=== PATIENT | female | born 1950 | race Caucasian/White ===

== ENCOUNTER 2021-05-09 05:25 | Day surgery (SDC) | payer OTHER, MEDICARE, SELFPAY ==
[~2021-05-09] VITALS: Ht 157.5 cm; Wt 61.2 kg
[2021-05-09 06:35] LABS: CALCIUM 7.6 mg/dL (8.4-11.0); CREATININE 0.69 mg/dL (0.55-1.30); POTASSIUM 3.6 mmol/L (3.5-5.1)
[2021-05-09 06:40] LABS: ALBUMIN 3.5 g/dL (3.4-4.8); TOTAL BILIRUBIN 0.1 mg/dL (0.0-1.0)
[2021-05-09] MEDS ORDERED: CEFAZOLIN 1 GM IVPB PREMIX 50 ML IV ONE (07:00)
[2021-05-09] MEDS ORDERED: WATER FOR IRRIGATION,STERILE 1,000 ML IRRIG.SOLN IR ONE (07:21)
[2021-05-09] MEDS ORDERED: SUGAMMADEX SODIUM 200 MG/2 ML VIAL IV ONE (07:21)
[2021-05-09] MEDS ORDERED: DEXAMETHASONE SOD PHOSPHATE 4 MG/ML VIAL ONE (07:21)
[2021-05-09] MEDS ORDERED: NALOXONE HCL 2 MG/2 ML SYR (NARCAN) ONE (07:21)
[2021-05-09] MEDS ORDERED: KETOROLAC TROMETHAMINE 30 MG VIAL ONE (07:21)
[2021-05-09] MEDS ORDERED: NS 1000 ML IV.SOLN IV ONE (07:21)
[2021-05-09] MEDS ORDERED: ROCURONIUM BROMIDE 10 MG/ML (ZEMURON) ONE (07:21)
[2021-05-09] MEDS ORDERED: LIDOCAINE PF 2%, 200 MG/10 ML AMPUL.LUER (EPIDURAL) INJ ONE (07:21)
[2021-05-09] MEDS ORDERED: ONDANSETRON HCL 4 MG/2 ML VIAL ONE (07:21)
[2021-05-09] MEDS ORDERED: ISOFLURANE 15 MIN GAS INH ONE (07:21)
[2021-05-09] MEDS ORDERED: MIDAZOLAM HCL 5 MG/ML VIAL (VERSED) IV ONE (07:21)
[2021-05-09] MEDS ORDERED: fentaNYL CITRATE 250 MCG/5 ML AMP ONE (07:21)
[2021-05-09] MEDS ORDERED: PROPOFOL 200MG/ 20ML VIAL (DIPRIVAN) IV ONE (07:21)
[2021-05-09] MEDS ORDERED: NS IRRIG SOLN 1000 ML IR ONE (07:21)
[2021-05-09] MEDS ORDERED: METOCLOPRAMIDE HCL 10 MG/2 ML VIAL IVP PRN (08:15)
[2021-05-09] MEDS ORDERED: hydrALAZINE HCL 20 MG/ML VIAL IVP PRN (08:15)
[2021-05-09] MEDS ORDERED: LABETALOL 100 MG/ 20ML VIAL IVP PRN (08:15)
[2021-05-09] MEDS ORDERED: MEPERIDINE HCL/PF 25 MG/ML DISP.SYRIN IVP PRN (08:15)
[2021-05-09] MEDS ORDERED: HYDROmorphone 1 MG/ML INJ. CARTRIDGE IVP PRN ×3 (08:15→08:45)
[2021-05-09] MEDS ORDERED: MIDAZOLAM HCL 2 MG/2 ML VIAL (VERSED) IVP PRN (08:15)
[2021-05-09] MEDS ORDERED: LR 1,000 ML IV SCH (08:15)
[2021-05-09] MEDS ORDERED: D5/0.45 NS 1,000 ML IV SCH (08:45)
[2021-05-09] MEDS ORDERED: HYDROcodone/ACETAMIN 5-325 MG TAB (NORCO/ VICODIN) PO PRN ×2 (08:45)
[2021-05-09] MEDS ORDERED: MEPERIDINE HCL/PF 25 MG/ML DISP.SYRIN ONE (09:22)
[2021-05-09 11:47] VITALS: BP_SYST 144
== END 2021-05-09 11:53 | disposition home or self-care (01) ==
LOC: SDS 05:25 → SMU 05:25 → SDS 11:53
PROVIDERS: ATTEND Colon & Rectal Surgery
DX: K80.10 Calculus of gallbladder with chronic cholecystitis without obstruction (principal); I10 Essential (primary) hypertension; E78.5 Hyperlipidemia, unspecified; G47.00 Insomnia, unspecified; M85.852 Other specified disorders of bone density and structure, left thigh; Z79.899 Other long term (current) drug therapy; Z20.822 Contact with and (suspected) exposure to COVID-19
CPT/HCPCS: 36415; 47563; 74300; 80053; 87426; 88304; C1727; C1758; J0690; J1100; J1885; J2001; J2175; J2250; J2310; J2405; J2704; J3010; J3490; J7030; Q9967; U0003; 76000